=== PATIENT | female | born 1955 | race Two or more races ===

== ENCOUNTER 2017-04-04 08:58 | Inpatient (IN) | payer MEDICARE, MEDICAID ==
[~2017-04-04] VITALS: Ht 157.5 cm; Wt 74.6 kg
[~2017-04-04 08:58] MED LIST: B-COTAB10 OR; ESCI5TAB PO; FERR325T PO; FURO80TA PO; HYDR-2652 PO; LISI40TA PO; NIFE10CA3 PO; SEVE800T8 PO
[2017-04-04 10:22] LABS: Basophils # (auto) 0 uL; Basophils % (auto) 0.1 % (0.0-2.0); CONDITION AutoValidated; DEFINITIVE SEE PRINTOUT; Eosinophils # (auto) 0 uL; Eosinophils % (auto) 0.1 % (0.0-7.0); Hematocrit 20.6 % (36.0-46.0); Lymphocytes # (auto) 0.9 uL; Lymphocytes % (auto) 4.9 % (10.0-50.0); Mean Corpuscular Hemoglobin 30.1 pg (28.0-32.0); Mean Corpuscular Hgb Conc. 32.8 g/dL (32.0-36.0); Mean Corpuscular Volume 91.9 fL (80.0-100.0); Mean Platelet Volume 8.5 fL (7.4-10.4); Monocytes # (auto) 0.6 uL; Monocytes % (auto) 3.6 % (0.0-12.0); Neutrophils # (auto) 16.2 uL; Neutrophils % (auto) 91.3 % (37.0-80.0); Platelet Count (auto) 363 10^3/uL (140-450); Red Cell Distribution Width 17.9 % (11.6-16.0); SUSPECT SEE PRINTOUT; White Blood Cell 17.7 10^3/uL (4.4-10.8)
[2017-04-04] MEDS ORDERED: SODIUM CHLORIDE 0.9% 1,000 ML IV ONE ×2 (10:22)
[2017-04-04 10:23] LABS: Hemoglobin 6.8 g/dL (12.2-16.2)
[2017-04-04] MEDS ORDERED: metroNIDAZOLE 500MG/100ML 100 ML IV ONE (10:30)
[2017-04-04] MEDS ORDERED: PIPERACILLIN-TAZOB 3.375GM 100 ML IV ONE (10:30)
[2017-04-04 10:39] LABS: Albumin 1.7 g/dL (3.4-5.0); BUN/Creatinine Ratio 8.6; Bilirubin, Total 0.9 mg/dL (0.2-1.0); Calcium 7.7 mg/dL (8.5-10.1); Total Protein 6.4 g/dL (6.4-8.2)
[2017-04-04 10:42] LABS: Potassium 2.7 mmol/L (3.5-5.1)
[2017-04-04] MEDS: POTASSIUM CHL 20MEQ/100ML 100 ML IV SCH ×3 (11:42→18:59)
[2017-04-04] MEDS ORDERED: PIPERACILLIN-TAZOB 2.25GM 0.75 GM in D5W 5% 50 ML IV SCH (13:45)
[2017-04-04 13:50] LABS: Urine Bilirubin Negative (Negative); Urine Blood 1+ /uL (Negative); Urine Color Yellow (Yellow); Urine Glucose Normal (Normal); Urine Ketone Negative (Negative); Urine Nitrite Negative (Negative); Urine RBC 21 /hpf (0 - 4); Urine Squamous Epithelial Cell FEW /hpf (<5); Urine Urobilinogen Normal (Negative); Urine WBC Clumps PRESENT /hpf (None Seen); Urine pH 7.5 (5.0-8.0)
[2017-04-04] MEDS: SODIUM CHLORIDE 0.9% 1,000 ML IV SCH (13:54)
[2017-04-04] MEDS ORDERED: TEMAZEPAM 15 MG CAP PO PRN (14:00)
[2017-04-04] MEDS ORDERED: DEXTROSE (50%) 50ML SYRG IV PRN (14:00)
[2017-04-04] MEDS: hydrALAZINE HCL 25 MG TAB PO SCH ×2 (14:00→22:34)
[2017-04-04] MEDS ORDERED: DOCUSATE SOD 100 MG CAP PO PRN (14:00)
[2017-04-04] MEDS ORDERED: ACETAMINOPHEN 325 MG TAB PO PRN (14:00)
[2017-04-04] MEDS ORDERED: MORPHINE SULF INJ 2 MG/ML SYRINGE 1ML IV PRN (14:00)
[2017-04-04] MEDS ORDERED: ONDANSETRON HCL 4 MG/2 ML VIAL IV PRN (14:00)
[2017-04-04] MEDS ORDERED: ENOXAPARIN SOD 30 MG/0.3 ML SYRINGE SC ONE (14:15)
[2017-04-04] MEDS ORDERED: FAMOTIDINE 20 MG TAB PO ONE (14:15)
[2017-04-04] MEDS ORDERED: FUROSEMIDE 40 MG TAB PO ONE (14:15)
[2017-04-04] MEDS ORDERED: NIFEdipine ER 30 MG TAB PO ONE (14:15)
[2017-04-04] MEDS: ACCU-CHEK COMFORT CURVE STRIP VI SCH ×2 (17:00→22:35)
[2017-04-04] MEDS: CLINDAMYCIN 300MG IV 50 ML IV SCH ×2 (17:05→23:02)
[2017-04-04] MEDS: Boost Glucose Control 8 Ounces PO SCH ×2 (18:00→22:00)
[2017-04-04] MEDS: InsuLIN REG 1unit/0.01ml Soln (100units/ml) SC SCH ×2 (19:00→22:45)
[2017-04-04 19:08] LABS: BUN/Creatinine Ratio 8.5; Calcium 7.7 mg/dL (8.5-10.1); Potassium 3.1 mmol/L (3.5-5.1)
[2017-04-04] MEDS: FERROUS SULFATE 325 MG TAB PO SCH (19:12)
[2017-04-04] MEDS: metroNIDAZOLE 500 MG TAB PO SCH (19:12)
[2017-04-04] MEDS: SEVELAMER 800 MG TAB PO SCH (19:13)
[2017-04-04 22:00] VITALS: BP 108/100
[2017-04-04] MEDS ORDERED: FAMOTIDINE 20 MG TAB PO SCH (22:00)
[2017-04-04] MEDS: PIPERACILLIN-TAZOB 2.25GM 50 ML IV SCH (22:34)
[2017-04-04] MEDS: ASCORBIC ACID 500 MG TAB PO SCH (22:35)
[2017-04-04] MEDS: HYDROcodone-ACET 5/325MG TAB PO PRN (23:10)
[2017-04-05] VITALS (10 sets, daily range): BP systolic 101–151; BP diastolic 42–89
[2017-04-05] MEDS: metroNIDAZOLE 500 MG TAB PO SCH ×5 (00:12→23:21)
[2017-04-05] MEDS: Boost Glucose Control 8 Ounces PO SCH ×4 (06:00→21:23)
[2017-04-05] MEDS: hydrALAZINE HCL 25 MG TAB PO SCH ×3 (06:27→21:51)
[2017-04-05] MEDS: CLINDAMYCIN 300MG IV 50 ML IV SCH ×2 (06:27→14:00)
[2017-04-05] MEDS: ACCU-CHEK COMFORT CURVE STRIP VI SCH ×4 (06:28→21:51)
[2017-04-05] MEDS: SODIUM CHLORIDE 0.9% 1,000 ML IV SCH ×2 (06:28→23:43)
[2017-04-05] MEDS: InsuLIN REG 1unit/0.01ml Soln (100units/ml) SC SCH ×4 (06:28→22:02)
[2017-04-05 07:11] LABS: Basophils # (auto) 0 uL; CONDITION AutoValidated; Eosinophils # (auto) 0 uL; Eosinophils % (auto) 0.1 % (0.0-7.0); Hematocrit 26.1 % (36.0-46.0); Hemoglobin 8.7 g/dL (12.2-16.2); Lymphocytes # (auto) 1.2 uL; Lymphocytes % (auto) 7.7 % (10.0-50.0); Mean Corpuscular Hemoglobin 29.4 pg (28.0-32.0); Mean Corpuscular Hgb Conc. 33.2 g/dL (32.0-36.0); Mean Corpuscular Volume 88.7 fL (80.0-100.0); Mean Platelet Volume 8.4 fL (7.4-10.4); Monocytes # (auto) 0.6 uL; Monocytes % (auto) 4.3 % (0.0-12.0); Neutrophils # (auto) 13.4 uL; Neutrophils % (auto) 87.9 % (37.0-80.0); Platelet Count (auto) 330 10^3/uL (140-450); Red Cell Distribution Width 18.6 % (11.6-16.0); White Blood Cell 15.2 10^3/uL (4.4-10.8)
[2017-04-05 07:22] LABS: Albumin 1.8 g/dL (3.4-5.0); BUN/Creatinine Ratio 9.1; Calcium 7.9 mg/dL (8.5-10.1); Potassium 3.4 mmol/L (3.5-5.1)
[2017-04-05 07:24] LABS: Total Protein 6.9 g/dL (6.4-8.2)
[2017-04-05] MEDS: PIPERACILLIN-TAZOB 2.25GM 50 ML IV SCH ×2 (08:54→22:01)
[2017-04-05] MEDS: FERROUS SULFATE 325 MG TAB PO SCH ×2 (08:54→17:09)
[2017-04-05] MEDS: SEVELAMER 800 MG TAB PO SCH ×3 (08:54→17:11)
[2017-04-05] MEDS: LEXAPRO 5 MG PO SCH (08:54)
[2017-04-05] MEDS: ZINC SULFATE 220 MG CAP PO SCH (08:55)
[2017-04-05] MEDS: FUROSEMIDE 40 MG TAB PO SCH (08:55)
[2017-04-05] MEDS: FAMOTIDINE 20 MG TAB PO SCH (08:56)
[2017-04-05] MEDS: B-COMPLEX W/ C & FOLIC ACID(NEPHROVITE TAB) PO SCH (08:56)
[2017-04-05] MEDS: MULTIPLE VITAMIN TAB PO SCH (08:56)
[2017-04-05] MEDS: NIFEdipine ER 30 MG TAB PO SCH (08:57)
[2017-04-05] MEDS: ASCORBIC ACID 500 MG TAB PO SCH ×2 (08:57→21:23)
[2017-04-05] MEDS: ENOXAPARIN SOD 30 MG/0.3 ML SYRINGE SC SCH (08:58)
[2017-04-05] MEDS: LISINOPRIL 20 MG TAB PO SCH (08:58)
[2017-04-05] MEDS ORDERED: ENOXAPARIN SOD 40 MG/0.4 ML SYRINGE SC SCH (10:00)
[2017-04-06 05:00] VITALS: BP 90/32
[2017-04-06] MEDS: Boost Glucose Control 8 Ounces PO SCH ×4 (05:44→21:49)
[2017-04-06] MEDS: metroNIDAZOLE 500 MG TAB PO SCH ×4 (05:44→23:22)
[2017-04-06] MEDS: hydrALAZINE HCL 25 MG TAB PO SCH ×3 (06:00→21:49)
[2017-04-06] MEDS: ACCU-CHEK COMFORT CURVE STRIP VI SCH ×4 (06:34→21:49)
[2017-04-06] MEDS: InsuLIN REG 1unit/0.01ml Soln (100units/ml) SC SCH ×4 (06:34→21:49)
[2017-04-06] MEDS: SEVELAMER 800 MG TAB PO SCH ×3 (08:00→18:06)
[2017-04-06] MEDS: FERROUS SULFATE 325 MG TAB PO SCH ×2 (08:00→18:06)
[2017-04-06 08:28] VITALS: BP 120/52
[2017-04-06] MEDS: LISINOPRIL 20 MG TAB PO SCH (10:00)
[2017-04-06] MEDS: LEXAPRO 5 MG PO SCH (10:00)
[2017-04-06] MEDS: NIFEdipine ER 30 MG TAB PO SCH (10:00)
[2017-04-06] MEDS: PIPERACILLIN-TAZOB 2.25GM 50 ML IV SCH ×2 (11:06→21:24)
[2017-04-06] MEDS: ZINC SULFATE 220 MG CAP PO SCH (11:07)
[2017-04-06] MEDS: FUROSEMIDE 40 MG TAB PO SCH (11:08)
[2017-04-06] MEDS: B-COMPLEX W/ C & FOLIC ACID(NEPHROVITE TAB) PO SCH (11:09)
[2017-04-06] MEDS: MULTIPLE VITAMIN TAB PO SCH (11:09)
[2017-04-06] MEDS: FAMOTIDINE 20 MG TAB PO SCH (11:09)
[2017-04-06] MEDS: ASCORBIC ACID 500 MG TAB PO SCH ×2 (11:09→21:24)
[2017-04-06] MEDS: ENOXAPARIN SOD 30 MG/0.3 ML SYRINGE SC SCH (11:10)
[2017-04-06 12:41] VITALS: BP 111/59
[2017-04-06] MEDS: SODIUM CHLORIDE 0.9% 1,000 ML IV SCH (15:59)
[2017-04-06 16:41] VITALS: BP 109/60
[2017-04-06 22:00] VITALS: BP 138/64
[2017-04-07 05:10] VITALS: BP 148/65
[2017-04-07] MEDS: metroNIDAZOLE 500 MG TAB PO SCH (05:29)
[2017-04-07] MEDS: Boost Glucose Control 8 Ounces PO SCH ×2 (05:30→12:24)
[2017-04-07] MEDS: hydrALAZINE HCL 25 MG TAB PO SCH ×3 (05:36→22:00)
[2017-04-07 06:27] LABS: Basophils # (auto) 0 uL; CONDITION Y; Eosinophils # (auto) 0 uL; Eosinophils % (auto) 0.2 % (0.0-7.0); Hemoglobin 9.2 g/dL (12.2-16.2); Lymphocytes # (auto) 0.9 uL; Lymphocytes % (auto) 5.8 % (10.0-50.0); Mean Corpuscular Hemoglobin 29.3 pg (28.0-32.0); Mean Corpuscular Hgb Conc. 32.8 g/dL (32.0-36.0); Mean Corpuscular Volume 89.3 fL (80.0-100.0); Mean Platelet Volume 8.2 fL (7.4-10.4); Monocytes # (auto) 0.5 uL; Monocytes % (auto) 3.1 % (0.0-12.0); Neutrophils # (auto) 14.2 uL; Neutrophils % (auto) 90.9 % (37.0-80.0); Platelet Count (auto) 305 10^3/uL (140-450); Red Cell Distribution Width 18.9 % (11.6-16.0); White Blood Cell 15.6 10^3/uL (4.4-10.8)
[2017-04-07] MEDS: ACCU-CHEK COMFORT CURVE STRIP VI SCH ×4 (06:31→22:02)
[2017-04-07] MEDS: InsuLIN REG 1unit/0.01ml Soln (100units/ml) SC SCH ×4 (06:31→22:00)
[2017-04-07 06:51] LABS: Calcium 7.5 mg/dL (8.5-10.1); Potassium 3.4 mmol/L (3.5-5.1)
[2017-04-07 06:53] LABS: BUN/Creatinine Ratio 9.8
[2017-04-07 08:00] VITALS: BP 151/63
[2017-04-07] MEDS: SEVELAMER 800 MG TAB PO SCH ×3 (08:00→18:00)
[2017-04-07] MEDS: FERROUS SULFATE 325 MG TAB PO SCH ×2 (08:00→18:00)
[2017-04-07] MEDS: SODIUM CHLORIDE 0.9% 1,000 ML IV SCH (08:34)
[2017-04-07] MEDS: ASCORBIC ACID 500 MG TAB PO SCH ×2 (10:00→21:22)
[2017-04-07] MEDS: NIFEdipine ER 30 MG TAB PO SCH ×2 (10:00→14:46)
[2017-04-07] MEDS: LEXAPRO 5 MG PO SCH (10:00)
[2017-04-07] MEDS ORDERED: VANCOMYCIN PER PHARMACY 0 MG IV SCH (11:30)
[2017-04-07] MEDS ORDERED: VANCOMYCIN 1GM/250ML D5W 250 ML IV ONE (11:30)
[2017-04-07 12:00] VITALS: BP 140/54
[2017-04-07] MEDS: ENOXAPARIN SOD 30 MG/0.3 ML SYRINGE SC SCH (12:22)
[2017-04-07] MEDS ORDERED: MEROPENEM 500MG IVPB 100 ML IV ONE (13:00)
[2017-04-07] MEDS ORDERED: EPOETIN ALFA 10,000 UNIT/1 ML VIAL IV ONE (14:30)
[2017-04-07] MEDS: MULTIPLE VITAMIN TAB PO SCH (14:46)
[2017-04-07] MEDS: LISINOPRIL 20 MG TAB PO SCH (14:46)
[2017-04-07] MEDS: B-COMPLEX W/ C & FOLIC ACID(NEPHROVITE TAB) PO SCH (14:47)
[2017-04-07] MEDS: FAMOTIDINE 20 MG TAB PO SCH (14:47)
[2017-04-07] MEDS: ZINC SULFATE 220 MG CAP PO SCH (14:47)
[2017-04-07] MEDS: FUROSEMIDE 40 MG TAB PO SCH (14:47)
[2017-04-07 17:00] VITALS: BP 144/58
[2017-04-07] MEDS: Novasource Renal 8 Ounces PO SCH (18:00)
[2017-04-07] MEDS: MEROPENEM 500MG IVPB 100 ML IV SCH (21:22)
[2017-04-07] MEDS: HYDROcodone-ACET 5/325MG TAB PO PRN (21:23)
[2017-04-07 22:00] VITALS: BP_SYST 157; BP_SYST 99; BP_DIAS 59; BP_DIAS 64
[2017-04-08] MEDS: SODIUM CHLORIDE 0.9% 1,000 ML IV SCH ×2 (01:14→17:54)
[2017-04-08 05:43] VITALS: BP 163/70
[2017-04-08] MEDS: hydrALAZINE HCL 25 MG TAB PO SCH ×4 (06:02→22:19)
[2017-04-08] MEDS: ACCU-CHEK COMFORT CURVE STRIP VI SCH ×4 (06:03→22:19)
[2017-04-08] MEDS: InsuLIN REG 1unit/0.01ml Soln (100units/ml) SC SCH ×4 (07:00→22:00)
[2017-04-08 07:14] LABS: Basophils # (auto) 0 uL; CONDITION Y; DEFINITIVE SEE PRINTOUT; Eosinophils # (auto) 0 uL; Hematocrit 28.2 % (36.0-46.0); Hemoglobin 9.4 g/dL (12.2-16.2); Lymphocytes % (auto) 5.6 % (10.0-50.0); Mean Corpuscular Hemoglobin 29.8 pg (28.0-32.0); Mean Corpuscular Hgb Conc. 33.3 g/dL (32.0-36.0); Mean Corpuscular Volume 89.4 fL (80.0-100.0); Mean Platelet Volume 8.4 fL (7.4-10.4); Monocytes # (auto) 0.7 uL; Monocytes % (auto) 3.8 % (0.0-12.0); Neutrophils # (auto) 15.9 uL; Neutrophils % (auto) 90.6 % (37.0-80.0); Platelet Count (auto) 319 10^3/uL (140-450); Red Cell Distribution Width 19.2 % (11.6-16.0); White Blood Cell 17.5 10^3/uL (4.4-10.8)
[2017-04-08 07:32] LABS: BUN/Creatinine Ratio 8.5; Calcium 7.8 mg/dL (8.5-10.1); Phosphorus 4.1 mg/dL (2.5-4.90)
[2017-04-08 08:00] VITALS: BP 162/65
[2017-04-08] MEDS: FERROUS SULFATE 325 MG TAB PO SCH ×2 (08:00→18:00)
[2017-04-08] MEDS: SEVELAMER 800 MG TAB PO SCH ×3 (08:00→18:00)
[2017-04-08] MEDS: Novasource Renal 8 Ounces PO SCH ×2 (08:00→19:30)
[2017-04-08] MEDS ORDERED: FLUCONAZOLE 200MG/100ML 100 ML IV ONE (08:15)
[2017-04-08] MEDS: ZINC SULFATE 220 MG CAP PO SCH (10:00)
[2017-04-08] MEDS: FUROSEMIDE 40 MG TAB PO SCH (10:00)
[2017-04-08] MEDS: MULTIPLE VITAMIN TAB PO SCH (10:00)
[2017-04-08] MEDS: FAMOTIDINE 20 MG TAB PO SCH (10:00)
[2017-04-08] MEDS: LISINOPRIL 20 MG TAB PO SCH (10:00)
[2017-04-08] MEDS: B-COMPLEX W/ C & FOLIC ACID(NEPHROVITE TAB) PO SCH (10:00)
[2017-04-08] MEDS: ASCORBIC ACID 500 MG TAB PO SCH ×2 (10:00→22:19)
[2017-04-08] MEDS: ENOXAPARIN SOD 30 MG/0.3 ML SYRINGE SC SCH (10:00)
[2017-04-08] MEDS: LEXAPRO 5 MG PO SCH (10:00)
[2017-04-08 13:00] VITALS: BP 142/56
[2017-04-08] MEDS: MEROPENEM 500MG IVPB 100 ML IV SCH ×2 (13:14→22:18)
[2017-04-08] MEDS ORDERED: LINEZOLID 600MG/300ML 300 ML IV ONE (16:30)
[2017-04-08] MEDS ORDERED: POTASSIUM CHL 20 Meq TABLET PO ONE (17:00)
[2017-04-08] MEDS: PRO-STAT 64 30ML PO SCH (18:00)
[2017-04-08] MEDS: MICAFUNGIN SODIUM 100 MG in SODIUM CHL 0.9% 100 ML IV SCH (22:17)
[2017-04-08 22:18] VITALS: BP 92/71
[2017-04-08] MEDS: LINEZOLID 600MG/300ML 300 ML IV SCH (22:18)
[2017-04-09 05:19] VITALS: BP 100/70
[2017-04-09] MEDS: hydrALAZINE HCL 25 MG TAB PO SCH ×3 (05:48→22:23)
[2017-04-09] MEDS: ACCU-CHEK COMFORT CURVE STRIP VI SCH ×4 (05:49→22:23)
[2017-04-09] MEDS: InsuLIN REG 1unit/0.01ml Soln (100units/ml) SC SCH ×4 (05:49→22:00)
[2017-04-09 07:22] LABS: Basophils # (auto) 0 uL; CONDITION Y; DEFINITIVE SEE PRINTOUT; Eosinophils # (auto) 0 uL; Hematocrit 26.4 % (36.0-46.0); Hemoglobin 8.6 g/dL (12.2-16.2); Lymphocytes # (auto) 1.2 uL; Mean Corpuscular Hemoglobin 29.5 pg (28.0-32.0); Mean Corpuscular Hgb Conc. 32.8 g/dL (32.0-36.0); Mean Corpuscular Volume 89.9 fL (80.0-100.0); Mean Platelet Volume 8.1 fL (7.4-10.4); Monocytes # (auto) 0.8 uL; Monocytes % (auto) 4.8 % (0.0-12.0); Neutrophils # (auto) 14.9 uL; Neutrophils % (auto) 88.2 % (37.0-80.0); Platelet Count (auto) 286 10^3/uL (140-450); Red Cell Distribution Width 19.8 % (11.6-16.0); SUSPECT SEE PRINTOUT; White Blood Cell 16.9 10^3/uL (4.4-10.8)
[2017-04-09 07:40] LABS: Magnesium 2.1 mg/dL (1.6-2.6); Potassium 3.1 mmol/L (3.5-5.1)
[2017-04-09 07:44] LABS: BUN/Creatinine Ratio 8.6; Phosphorus 4.8 mg/dL (2.5-4.90)
[2017-04-09 08:00] VITALS: BP 98/65
[2017-04-09 08:04] VITALS: BP 99/70
[2017-04-09] MEDS ORDERED: FLUCONAZOLE 100 MG TAB PO SCH (10:00)
[2017-04-09] MEDS: LEXAPRO 5 MG PO SCH (10:00)
[2017-04-09] MEDS: FUROSEMIDE 40 MG TAB PO SCH (10:07)
[2017-04-09] MEDS: NIFEdipine ER 30 MG TAB PO SCH (10:08)
[2017-04-09] MEDS: LISINOPRIL 20 MG TAB PO SCH (10:08)
[2017-04-09] MEDS: FERROUS SULFATE 325 MG TAB PO SCH ×2 (10:12→18:05)
[2017-04-09] MEDS: ASCORBIC ACID 500 MG TAB PO SCH ×2 (10:12→22:23)
[2017-04-09] MEDS: B-COMPLEX W/ C & FOLIC ACID(NEPHROVITE TAB) PO SCH (10:12)
[2017-04-09] MEDS: ZINC SULFATE 220 MG CAP PO SCH (10:12)
[2017-04-09] MEDS: SEVELAMER 800 MG TAB PO SCH ×3 (10:12→18:13)
[2017-04-09] MEDS: FAMOTIDINE 20 MG TAB PO SCH (10:12)
[2017-04-09] MEDS: MULTIPLE VITAMIN TAB PO SCH (10:12)
[2017-04-09] MEDS: LINEZOLID 600MG/300ML 300 ML IV SCH ×2 (10:14→22:22)
[2017-04-09] MEDS: ENOXAPARIN SOD 30 MG/0.3 ML SYRINGE SC SCH (10:14)
[2017-04-09] MEDS: PRO-STAT 64 30ML PO SCH ×2 (10:14→18:12)
[2017-04-09] MEDS: Novasource Renal 8 Ounces PO SCH ×2 (10:15→18:12)
[2017-04-09] MEDS: MEROPENEM 500MG IVPB 100 ML IV SCH ×2 (11:33→22:20)
[2017-04-09 11:50] VITALS: BP 101/76
[2017-04-09] MEDS: SODIUM CHLORIDE 0.9% 1,000 ML IV SCH (14:46)
[2017-04-09 16:14] VITALS: BP 120/74
[2017-04-09] MEDS ORDERED: POTASSIUM CHL 20 Meq TABLET PO ONE (17:15)
[2017-04-09] MEDS: MICAFUNGIN SODIUM 100 MG in SODIUM CHL 0.9% 100 ML IV SCH (18:11)
[2017-04-09 22:00] VITALS: BP 113/92
[2017-04-10 05:00] VITALS: BP 147/58
[2017-04-10] MEDS: hydrALAZINE HCL 25 MG TAB PO SCH ×3 (05:55→21:28)
[2017-04-10] MEDS: InsuLIN REG 1unit/0.01ml Soln (100units/ml) SC SCH ×4 (05:55→21:23)
[2017-04-10] MEDS: ACCU-CHEK COMFORT CURVE STRIP VI SCH ×4 (05:56→21:23)
[2017-04-10 06:24] LABS: CONDITION Y; DEFINITIVE SEE PRINTOUT; Hematocrit 26.5 % (36.0-46.0); Hemoglobin 8.8 g/dL (12.2-16.2); Mean Corpuscular Hemoglobin 30.2 pg (28.0-32.0); Mean Corpuscular Hgb Conc. 33.2 g/dL (32.0-36.0); Mean Corpuscular Volume 90.9 fL (80.0-100.0); Mean Platelet Volume 8.1 fL (7.4-10.4); Platelet Count (auto) 288 10^3/uL (140-450); White Blood Cell 16.8 10^3/uL (4.4-10.8)
[2017-04-10 06:43] LABS: BUN/Creatinine Ratio 9.2; Calcium 7.8 mg/dL (8.5-10.1); Magnesium 2.1 mg/dL (1.6-2.6); Phosphorus 5.2 mg/dL (2.5-4.90); Potassium 3.4 mmol/L (3.5-5.1)
[2017-04-10 06:46] LABS: Red Cell Distribution Width 20.8 % (11.6-16.0)
[2017-04-10 06:47] LABS: Metamyelocytes % 0; Myelocytes % 0; Promyelocytes % 0; Reactive Lymphocytes 0
[2017-04-10 08:00] VITALS: BP 149/59
[2017-04-10] MEDS: FERROUS SULFATE 325 MG TAB PO SCH ×2 (08:02→17:01)
[2017-04-10] MEDS: SEVELAMER 800 MG TAB PO SCH ×3 (08:02→17:04)
[2017-04-10] MEDS: PRO-STAT 64 30ML PO SCH ×2 (08:09→17:04)
[2017-04-10] MEDS: Novasource Renal 8 Ounces PO SCH ×2 (08:09→17:04)
[2017-04-10 08:39] LABS: Anisocytosis Slight; Burr Cells FEW; Platelet Estimate Adequate
[2017-04-10 08:40] LABS: Ovalocytes FEW
[2017-04-10 08:59] VITALS: BP 149/59
[2017-04-10] MEDS: NIFEdipine ER 30 MG TAB PO SCH (10:00)
[2017-04-10] MEDS: ENOXAPARIN SOD 30 MG/0.3 ML SYRINGE SC SCH (10:00)
[2017-04-10] MEDS: LINEZOLID 600MG/300ML 300 ML IV SCH ×2 (10:21→21:28)
[2017-04-10] MEDS: ZINC SULFATE 220 MG CAP PO SCH (10:21)
[2017-04-10] MEDS: B-COMPLEX W/ C & FOLIC ACID(NEPHROVITE TAB) PO SCH (10:21)
[2017-04-10] MEDS: ASCORBIC ACID 500 MG TAB PO SCH ×2 (10:22→21:28)
[2017-04-10] MEDS: FAMOTIDINE 20 MG TAB PO SCH (10:22)
[2017-04-10] MEDS: LISINOPRIL 20 MG TAB PO SCH (10:22)
[2017-04-10] MEDS: MULTIPLE VITAMIN TAB PO SCH (10:22)
[2017-04-10] MEDS: LEXAPRO 5 MG PO SCH (10:51)
[2017-04-10 12:40] VITALS: BP 141/51
[2017-04-10] MEDS: MEROPENEM 500MG IVPB 100 ML IV SCH ×2 (13:54→22:53)
[2017-04-10 17:00] VITALS: BP 157/54
[2017-04-10] MEDS: BUMETANIDE (0.25 MG/ML) INJ 10ML IV SCH (17:16)
[2017-04-10] MEDS: MICAFUNGIN SODIUM 100 MG in SODIUM CHL 0.9% 100 ML IV SCH (17:16)
[2017-04-10 22:00] VITALS: BP 118/58
[2017-04-11 05:00] VITALS: BP 153/56
[2017-04-11] MEDS: BUMETANIDE (0.25 MG/ML) INJ 10ML IV SCH ×2 (05:52→18:00)
[2017-04-11] MEDS: hydrALAZINE HCL 25 MG TAB PO SCH ×3 (05:52→22:00)
[2017-04-11 06:35] LABS: CONDITION Y; DEFINITIVE SEE PRINTOUT; Hematocrit 28.2 % (36.0-46.0); Hemoglobin 9.5 g/dL (12.2-16.2); Mean Corpuscular Hgb Conc. 33.7 g/dL (32.0-36.0); Mean Corpuscular Volume 89.1 fL (80.0-100.0); Mean Platelet Volume 8.7 fL (7.4-10.4); Platelet Count (auto) 297 10^3/uL (140-450); Red Cell Distribution Width 19.6 % (11.6-16.0); SUSPECT SEE PRINTOUT
[2017-04-11 06:39] LABS: Metamyelocytes % 0; Myelocytes % 0; Promyelocytes % 0; Reactive Lymphocytes 0
[2017-04-11] MEDS: ACCU-CHEK COMFORT CURVE STRIP VI SCH ×4 (06:58→21:44)
[2017-04-11] MEDS: InsuLIN REG 1unit/0.01ml Soln (100units/ml) SC SCH ×4 (06:58→21:44)
[2017-04-11 07:08] LABS: BUN/Creatinine Ratio 9.5; Calcium 7.8 mg/dL (8.5-10.1)
[2017-04-11] MEDS: PRO-STAT 64 30ML PO SCH ×2 (08:00→18:00)
[2017-04-11] MEDS: FERROUS SULFATE 325 MG TAB PO SCH ×2 (08:05→17:53)
[2017-04-11] MEDS: SEVELAMER 800 MG TAB PO SCH ×3 (08:05→17:53)
[2017-04-11 09:00] VITALS: BP 149/96
[2017-04-11 09:11] LABS: Platelet Estimate Adequate
[2017-04-11 09:12] LABS: Anisocytosis Slight; Burr Cells FEW; Ovalocytes FEW
[2017-04-11] MEDS: LINEZOLID 600MG/300ML 300 ML IV SCH ×2 (09:16→21:44)
[2017-04-11] MEDS: ENOXAPARIN SOD 30 MG/0.3 ML SYRINGE SC SCH (09:16)
[2017-04-11] MEDS: MEROPENEM 500MG IVPB 100 ML IV SCH ×2 (09:16→22:00)
[2017-04-11] MEDS: B-COMPLEX W/ C & FOLIC ACID(NEPHROVITE TAB) PO SCH (09:17)
[2017-04-11] MEDS: ASCORBIC ACID 500 MG TAB PO SCH ×2 (09:17→22:00)
[2017-04-11] MEDS: FAMOTIDINE 20 MG TAB PO SCH (09:17)
[2017-04-11] MEDS: MULTIPLE VITAMIN TAB PO SCH (09:17)
[2017-04-11] MEDS: ZINC SULFATE 220 MG CAP PO SCH (09:17)
[2017-04-11 09:27] LABS: White Blood Cell 17.8 10^3/uL (4.4-10.8)
[2017-04-11] MEDS: NIFEdipine ER 30 MG TAB PO SCH (10:00)
[2017-04-11] MEDS: LISINOPRIL 20 MG TAB PO SCH (10:00)
[2017-04-11] MEDS: LEXAPRO 5 MG PO SCH (10:00)
[2017-04-11] MEDS: Novasource Renal 8 Ounces PO SCH ×2 (10:11→18:00)
[2017-04-11] MEDS ORDERED: EPOETIN ALFA 10,000 UNIT/1 ML VIAL IV ONE (12:15)
[2017-04-11 13:00] VITALS: BP 106/76
[2017-04-11 17:00] VITALS: BP 158/59
[2017-04-11] MEDS: MICAFUNGIN SODIUM 100 MG in SODIUM CHL 0.9% 100 ML IV SCH (17:53)
[2017-04-12] MEDS: BUMETANIDE (0.25 MG/ML) INJ 10ML IV SCH ×2 (05:32→17:49)
[2017-04-12] MEDS: hydrALAZINE HCL 25 MG TAB PO SCH ×3 (05:32→22:24)
[2017-04-12 05:41] VITALS: BP 163/67
[2017-04-12] MEDS: InsuLIN REG 1unit/0.01ml Soln (100units/ml) SC SCH ×4 (06:25→21:52)
[2017-04-12] MEDS: ACCU-CHEK COMFORT CURVE STRIP VI SCH ×4 (06:27→21:52)
[2017-04-12 07:19] LABS: CONDITION Y; DEFINITIVE SEE PRINTOUT; Hemoglobin 9.8 g/dL (12.2-16.2); Mean Corpuscular Hemoglobin 29.3 pg (28.0-32.0); Mean Corpuscular Hgb Conc. 32.7 g/dL (32.0-36.0); Mean Corpuscular Volume 89.8 fL (80.0-100.0); Platelet Count (auto) 296 10^3/uL (140-450); Red Cell Distribution Width 19.3 % (11.6-16.0); White Blood Cell 16.5 10^3/uL (4.4-10.8)
[2017-04-12 07:23] LABS: Metamyelocytes % 0; Myelocytes % 0; Promyelocytes % 0; Reactive Lymphocytes 0
[2017-04-12 07:27] LABS: BUN/Creatinine Ratio 9.2; Magnesium 2.1 mg/dL (1.6-2.6); Phosphorus 4.5 mg/dL (2.5-4.90); Potassium 3.3 mmol/L (3.5-5.1)
[2017-04-12] MEDS: Novasource Renal 8 Ounces PO SCH ×2 (08:00→18:21)
[2017-04-12] MEDS: PRO-STAT 64 30ML PO SCH ×2 (08:00→18:21)
[2017-04-12] MEDS: FERROUS SULFATE 325 MG TAB PO SCH ×2 (08:26→17:49)
[2017-04-12] MEDS: SEVELAMER 800 MG TAB PO SCH ×3 (08:26→17:50)
[2017-04-12 09:00] VITALS: BP 117/62
[2017-04-12] MEDS: LISINOPRIL 20 MG TAB PO SCH (10:00)
[2017-04-12] MEDS: LEXAPRO 5 MG PO SCH (10:00)
[2017-04-12] MEDS: NIFEdipine ER 30 MG TAB PO SCH (10:00)
[2017-04-12] MEDS: MEROPENEM 500MG IVPB 100 ML IV SCH ×2 (10:33→20:41)
[2017-04-12] MEDS: LINEZOLID 600MG/300ML 300 ML IV SCH ×2 (10:33→22:48)
[2017-04-12] MEDS: MULTIPLE VITAMIN TAB PO SCH (10:34)
[2017-04-12] MEDS: ASCORBIC ACID 500 MG TAB PO SCH ×2 (10:34→22:23)
[2017-04-12] MEDS: FAMOTIDINE 20 MG TAB PO SCH (10:34)
[2017-04-12] MEDS: B-COMPLEX W/ C & FOLIC ACID(NEPHROVITE TAB) PO SCH (10:34)
[2017-04-12] MEDS: ZINC SULFATE 220 MG CAP PO SCH (10:34)
[2017-04-12] MEDS: ENOXAPARIN SOD 30 MG/0.3 ML SYRINGE SC SCH (10:34)
[2017-04-12 11:16] LABS: Platelet Estimate Adequate
[2017-04-12 11:17] LABS: Anisocytosis Slight
[2017-04-12 11:18] LABS: Ovalocytes FEW; Stomatocytes Few
[2017-04-12 13:00] VITALS: BP 105/78
[2017-04-12 17:00] VITALS: BP 153/60
[2017-04-12] MEDS: MICAFUNGIN SODIUM 100 MG in SODIUM CHL 0.9% 100 ML IV SCH (17:49)
[2017-04-12 21:50] VITALS: BP 132/59
[2017-04-13 05:37] VITALS: BP 154/66
[2017-04-13] MEDS: hydrALAZINE HCL 25 MG TAB PO SCH ×3 (06:00→21:41)
[2017-04-13] MEDS: InsuLIN REG 1unit/0.01ml Soln (100units/ml) SC SCH ×4 (06:39→21:42)
[2017-04-13] MEDS: BUMETANIDE (0.25 MG/ML) INJ 10ML IV SCH ×2 (06:39→17:12)
[2017-04-13] MEDS: ACCU-CHEK COMFORT CURVE STRIP VI SCH ×4 (06:40→21:42)
[2017-04-13] MEDS: SEVELAMER 800 MG TAB PO SCH ×3 (07:51→17:24)
[2017-04-13] MEDS: FERROUS SULFATE 325 MG TAB PO SCH ×2 (07:51→17:24)
[2017-04-13] MEDS: Novasource Renal 8 Ounces PO SCH ×2 (07:52→17:32)
[2017-04-13] MEDS: PRO-STAT 64 30ML PO SCH ×2 (07:52→17:32)
[2017-04-13] MEDS: MEROPENEM 500MG IVPB 100 ML IV SCH ×2 (08:59→22:40)
[2017-04-13 09:00] VITALS: BP 146/63
[2017-04-13] MEDS: ZINC SULFATE 220 MG CAP PO SCH (10:00)
[2017-04-13] MEDS: LEXAPRO 5 MG PO SCH (10:00)
[2017-04-13] MEDS: MULTIPLE VITAMIN TAB PO SCH (10:00)
[2017-04-13] MEDS: LISINOPRIL 20 MG TAB PO SCH (10:40)
[2017-04-13] MEDS: LINEZOLID 600MG/300ML 300 ML IV SCH ×2 (10:40→21:40)
[2017-04-13] MEDS: ASCORBIC ACID 500 MG TAB PO SCH ×2 (10:41→21:41)
[2017-04-13] MEDS: B-COMPLEX W/ C & FOLIC ACID(NEPHROVITE TAB) PO SCH (10:41)
[2017-04-13] MEDS: FAMOTIDINE 20 MG TAB PO SCH (10:43)
[2017-04-13] MEDS: ENOXAPARIN SOD 30 MG/0.3 ML SYRINGE SC SCH (10:44)
[2017-04-13] MEDS: NIFEdipine ER 30 MG TAB PO SCH (10:44)
[2017-04-13 11:36] LABS: INR 1.27 (0.9-1.15)
[2017-04-13 11:37] LABS: Prothrombin Time 13.9 sec (9.37-12.3)
[2017-04-13 13:00] VITALS: BP 140/69
[2017-04-13 17:00] VITALS: BP 171/65
[2017-04-13] MEDS: MICAFUNGIN SODIUM 100 MG in SODIUM CHL 0.9% 100 ML IV SCH (17:33)
[2017-04-13 21:30] VITALS: BP 146/57
[2017-04-14 05:00] VITALS: BP 159/102
[2017-04-14] MEDS: BUMETANIDE (0.25 MG/ML) INJ 10ML IV SCH ×2 (05:40→18:00)
[2017-04-14] MEDS: hydrALAZINE HCL 25 MG TAB PO SCH ×3 (05:41→21:32)
[2017-04-14] MEDS: ACCU-CHEK COMFORT CURVE STRIP VI SCH ×4 (06:51→21:33)
[2017-04-14] MEDS: InsuLIN REG 1unit/0.01ml Soln (100units/ml) SC SCH ×4 (06:51→21:55)
[2017-04-14 07:04] LABS: Basophils # (auto) 0 uL; CONDITION Y; DEFINITIVE SEE PRINTOUT; Eosinophils # (auto) 0 uL; Hematocrit 29.3 % (36.0-46.0); Hemoglobin 9.6 g/dL (12.2-16.2); Mean Corpuscular Hemoglobin 29.7 pg (28.0-32.0); Mean Corpuscular Hgb Conc. 32.7 g/dL (32.0-36.0); Mean Corpuscular Volume 90.9 fL (80.0-100.0); Mean Platelet Volume 7.4 fL (7.4-10.4); Monocytes # (auto) 0.4 uL; Monocytes % (auto) 2.6 % (0.0-12.0); Neutrophils # (auto) 15.9 uL; Neutrophils % (auto) 91.4 % (37.0-80.0); Platelet Count (auto) 262 10^3/uL (140-450); SUSPECT SEE PRINTOUT; White Blood Cell 17.4 10^3/uL (4.4-10.8)
[2017-04-14 07:15] LABS: Red Cell Distribution Width 20.1 % (11.6-16.0)
[2017-04-14 07:24] LABS: Calcium 7.9 mg/dL (8.5-10.1); Potassium 3.4 mmol/L (3.5-5.1)
[2017-04-14 07:27] LABS: BUN/Creatinine Ratio 10.2; Phosphorus 5.4 mg/dL (2.5-4.90)
[2017-04-14] MEDS: SEVELAMER 800 MG TAB PO SCH ×3 (08:00→18:00)
[2017-04-14] MEDS: Novasource Renal 8 Ounces PO SCH ×2 (08:00→18:00)
[2017-04-14] MEDS: FERROUS SULFATE 325 MG TAB PO SCH ×2 (08:00→18:00)
[2017-04-14] MEDS: PRO-STAT 64 30ML PO SCH ×2 (08:00→18:00)
[2017-04-14 08:08] LABS: Anisocytosis Slight; Ovalocytes FEW; Platelet Estimate Adequate
[2017-04-14 08:24] VITALS: BP 165/76
[2017-04-14] MEDS ORDERED: EPOETIN ALFA 10,000 UNIT/1 ML VIAL IV ONE (10:00)
[2017-04-14] MEDS: FAMOTIDINE 20 MG TAB PO SCH (10:00)
[2017-04-14] MEDS: LISINOPRIL 20 MG TAB PO SCH (10:00)
[2017-04-14] MEDS ORDERED: SODIUM CHL 0.9% 1000 ML BAG XX ONE (10:00)
[2017-04-14] MEDS: MULTIPLE VITAMIN TAB PO SCH (10:00)
[2017-04-14] MEDS: ENOXAPARIN SOD 30 MG/0.3 ML SYRINGE SC SCH (10:00)
[2017-04-14] MEDS: LEXAPRO 5 MG PO SCH (10:00)
[2017-04-14] MEDS: ASCORBIC ACID 500 MG TAB PO SCH ×2 (10:00→21:32)
[2017-04-14] MEDS: NIFEdipine ER 30 MG TAB PO SCH (10:00)
[2017-04-14] MEDS: B-COMPLEX W/ C & FOLIC ACID(NEPHROVITE TAB) PO SCH (10:00)
[2017-04-14] MEDS: ZINC SULFATE 220 MG CAP PO SCH (10:00)
[2017-04-14] MEDS: LINEZOLID 600MG/300ML 300 ML IV SCH ×2 (10:27→21:33)
[2017-04-14] MEDS: MEROPENEM 500MG IVPB 100 ML IV SCH ×2 (10:46→21:33)
[2017-04-14 12:54] VITALS: BP 142/74
[2017-04-14 17:05] VITALS: BP 174/78
[2017-04-14] MEDS: MICAFUNGIN SODIUM 100 MG in SODIUM CHL 0.9% 100 ML IV SCH (18:16)
[2017-04-14 20:00] VITALS: BP 156/75
[2017-04-14 22:00] VITALS: BP 156/75
[2017-04-15 05:00] VITALS: BP 155/70
[2017-04-15] MEDS: hydrALAZINE HCL 25 MG TAB PO SCH ×2 (06:21→14:00)
[2017-04-15] MEDS: BUMETANIDE (0.25 MG/ML) INJ 10ML IV SCH (06:21)
[2017-04-15] MEDS: ACCU-CHEK COMFORT CURVE STRIP VI SCH ×2 (06:31→12:12)
[2017-04-15] MEDS: InsuLIN REG 1unit/0.01ml Soln (100units/ml) SC SCH ×2 (06:31→11:30)
[2017-04-15 07:05] LABS: CONDITION Y; DEFINITIVE SEE PRINTOUT; Hematocrit 27.8 % (36.0-46.0); Hemoglobin 8.8 g/dL (12.2-16.2); Mean Corpuscular Hemoglobin 30.1 pg (28.0-32.0); Mean Corpuscular Hgb Conc. 31.5 g/dL (32.0-36.0); Mean Corpuscular Volume 95.4 fL (80.0-100.0); Mean Platelet Volume 7.4 fL (7.4-10.4); Platelet Count (auto) 188 10^3/uL (140-450); White Blood Cell 15.9 10^3/uL (4.4-10.8)
[2017-04-15 07:38] LABS: Red Cell Distribution Width 21.2 % (11.6-16.0)
[2017-04-15 07:39] LABS: Metamyelocytes % 0; Myelocytes % 0; Promyelocytes % 0; Reactive Lymphocytes 0
[2017-04-15 07:43] LABS: BUN/Creatinine Ratio 10.3; Calcium 7.4 mg/dL (8.5-10.1); Magnesium 2.2 mg/dL (1.6-2.6); Potassium 3.6 mmol/L (3.5-5.1)
[2017-04-15 08:00] VITALS: BP 157/69
[2017-04-15 09:00] VITALS: BP 157/69
[2017-04-15] MEDS: LEXAPRO 5 MG PO SCH (10:00)
[2017-04-15] MEDS: ENOXAPARIN SOD 30 MG/0.3 ML SYRINGE SC SCH (10:00)
[2017-04-15] MEDS: FERROUS SULFATE 325 MG TAB PO SCH (10:32)
[2017-04-15] MEDS: SEVELAMER 800 MG TAB PO SCH ×2 (10:32→12:00)
[2017-04-15] MEDS: LINEZOLID 600MG/300ML 300 ML IV SCH (10:32)
[2017-04-15] MEDS: MEROPENEM 500MG IVPB 100 ML IV SCH (10:32)
[2017-04-15] MEDS: B-COMPLEX W/ C & FOLIC ACID(NEPHROVITE TAB) PO SCH (10:33)
[2017-04-15] MEDS: LISINOPRIL 20 MG TAB PO SCH (10:33)
[2017-04-15] MEDS: ZINC SULFATE 220 MG CAP PO SCH (10:33)
[2017-04-15] MEDS: MULTIPLE VITAMIN TAB PO SCH (10:34)
[2017-04-15] MEDS: NIFEdipine ER 30 MG TAB PO SCH (10:34)
[2017-04-15] MEDS: FAMOTIDINE 20 MG TAB PO SCH (10:34)
[2017-04-15] MEDS: ASCORBIC ACID 500 MG TAB PO SCH (10:35)
[2017-04-15] MEDS ORDERED: SODIUM CHL 0.9% 1000 ML BAG XX ONE (11:00)
[2017-04-15] MEDS ORDERED: EPOETIN ALFA 10,000 UNIT/1 ML VIAL IV ONE (11:00)
[2017-04-15 11:04] LABS: Platelet Estimate Adequate
[2017-04-15 11:10] LABS: Anisocytosis Slight; Burr Cells FEW; Ovalocytes FEW
[2017-04-15 11:11] LABS: Tear Drop Cells FEW
[2017-04-15] MEDS: Novasource Renal 8 Ounces PO SCH (11:14)
[2017-04-15] MEDS: PRO-STAT 64 30ML PO SCH (11:14)
[2017-04-15 13:00] VITALS: BP 116/44
[2017-04-15] MEDS ORDERED: MORPHINE SULFATE 4 MG/ML SYRG IV PRN (14:57)
== END 2017-04-15 16:00 | DRG 871 ==
LOC: ER 08:58 → EDBD 08:58 → OVERFLOW 08:59 → WEST WING 15:21
PROVIDERS: ADMIT Internal Medicine; ATTEND Family Medicine
PROC: 30233N1 Transfusion of Nonautologous Red Blood Cells into Peripheral Vein, Percutaneous Approach (ICD-10-PCS; principal; 2017-04-05)
PROC: 05H533Z Insertion of Infusion Device into Right Subclavian Vein, Percutaneous Approach (ICD-10-PCS; 2017-04-05)
PROC: 5A1D60Z (ICD-10-PCS; 2017-04-07)
DX: A41.9 Sepsis, unspecified organism (principal); G93.41 Metabolic encephalopathy; E43 Unspecified severe protein-calorie malnutrition; N18.6 End stage renal disease; L89.153 Pressure ulcer of sacral region, stage 3; L89.314 Pressure ulcer of right buttock, stage 4; I12.0 Hypertensive chronic kidney disease with stage 5 chronic kidney disease or end stage renal disease; L03.115 Cellulitis of right lower limb; D64.9 Anemia, unspecified; E11.21 Type 2 diabetes mellitus with diabetic nephropathy; G30.9 Alzheimer's disease, unspecified; E11.65 Type 2 diabetes mellitus with hyperglycemia; I70.0 Atherosclerosis of aorta; D25.9 Leiomyoma of uterus, unspecified; D63.8 Anemia in other chronic diseases classified elsewhere; T14.8 Other injury of unspecified body region; X58.XXXA Exposure to other specified factors, initial encounter; K80.20 Calculus of gallbladder without cholecystitis without obstruction; F02.80 Dementia in other diseases classified elsewhere, unspecified severity, without behavioral disturbance, psychotic disturbance, mood disturbance, and anxiety; E11.22 Type 2 diabetes mellitus with diabetic chronic kidney disease; I27.2 Other secondary pulmonary hypertension; Z16.24 Resistance to multiple antibiotics; Z51.5 Encounter for palliative care; R65.20 Severe sepsis without septic shock; E87.8 Other disorders of electrolyte and fluid balance, not elsewhere classified; Z68.30 Body mass index [BMI] 30.0-30.9, adult; Y93.89 Activity, other specified; Z86.73 Personal history of transient ischemic attack (TIA), and cerebral infarction without residual deficits; Z99.2 Dependence on renal dialysis; Y92.89 Other specified places as the place of occurrence of the external cause; Y99.8 Other external cause status; Z66 Do not resuscitate
CPT/HCPCS: 36415; 36556; 51702; 71010; 74176; 80048; 80053; 80202; 81001; 82962; 83036; 83605; 83735; 84100; 85007; 85025; 85027; 85610; 86850; 86900; 86901; 86920; 87040; 87077; 87081; 87086; 87186; 87205; 87493; 90935; 92610; 93005; 96361; 96365; 96368; 97110; 97163; 97530; 99291; J0885; J1450; J1642; J1815; J2185; J2248; J2543; J3480; J3490